=== PATIENT | female | born 1980 | race Hispanic/Latino ===

== ENCOUNTER 2022-02-27 19:45 | Observation (INO) | payer SELFPAY ==
[2022-02-28 08:24] VITALS: BP 118/70; TEMP 98.3
[2022-02-28] MEDS ORDERED: FLU VACC QS2022-23(6MOS UP)/PF 60 MCG/0.5 ML SYRINGE IM ONE (09:00)
== END 2022-02-28 09:10 | disposition home or self-care (01) ==
LOC: CSHPP 19:45
PROVIDERS: ADMIT Obstetrics & Gynecology; ATTEND Obstetrics & Gynecology
DX: D64.9 Anemia, unspecified (principal); N93.9 Abnormal uterine and vaginal bleeding, unspecified; Z98.890 Other specified postprocedural states
CPT/HCPCS: 36430; 76856; 86850; 86900; 86901; G0378; P9016